=== PATIENT | female | born 1955 | race Caucasian/White ===

== ENCOUNTER 2017-10-27 13:59 | Emergency (ER) | payer BC ==
--- NOTE | 2017-10-27 14:42 | UC ---
Cardiac HPI - HPI Summary HPI Summary: 62 yo WF smoker recently quit one week ago now p/w left sided CP radiating to left arm and to the back x few hours. Quit smoking about 2-3 weeks ago - History of Current Complaint Chief Complaint: UCChestPain Stated Complaint: SHOULDER PAIN SOB DIZZY Time Seen by Provider: 10/27/17 14:09 Hx Obtained From: Patient Hx From Patient Unobtainable Due To: Other Hx Last Menstrual Period: age 49 Onset/Duration: Sudden Onset, Lasting Hours Initial Severity: Moderate Current Severity: Moderate Pain Intensity: 5 - Allergy/Home Medications Allergies/Adverse Reactions: Allergies Allergy/AdvReac Type Severity Reaction Status Date / Time No Known Allergies Allergy Verified 10/27/17 19:05 PMH/Surg Hx/FS Hx/Imm Hx - Additional Past Medical History Additional PMH: none - Surgical History Surgical History: Yes Surgery Procedure, Year, and Place: leg vein surgery - Social History Alcohol Use: Occasionally Substance Use Type: None Smoking Status (MU): Former Smoker Type: Cigarettes Amount Used/How Often: 1/2 pack daily When Did the Patient Quit Smoking/Using Tobacco: 40+ years Review of Systems Constitutional: Negative Skin: Negative Eyes: Negative ENT: Negative Respiratory: Negative Cardiovascular: Chest Pain Gastrointestinal: Negative Genitourinary: Negative Motor: Negative Neurovascular: Negative Musculoskeletal: Negative Neurological: Negative Psychological: Negative All Other Systems Reviewed And Are Negative: Yes Physical Exam Triage Information Reviewed: Yes Vital Signs: Initial Vital Signs Temp 36.6 C 10/27/17 14:08 Pulse 80 10/27/17 14:08 Resp 18 10/27/17 14:08 BP 116/74 10/27/17 14:08 Pulse Ox 98 10/27/17 14:08 Eye Exam: Normal ENT Exam: Normal Dental Exam: Normal Neck exam: Normal Neck: Positive: 1 Respiratory Exam: Normal Cardiovascular Exam: Normal Abdominal Exam: Normal Musculoskeletal Exam: Normal Neurological Exam: Normal Psychological Exam: Normal Skin Exam: Normal - Differential Diagnoses - Chest Pain Differential Diagnosis/HQI/PQRI: Acute GA, ACS, Angina, Lower Respiratory Infection - Clinical Impression Provider Diagnoses: left sided CP, r/o ACS Discharge - Discharge Plan Condition: Stable Disposition: HOME Patient Education Materials: Chest Pain (ED) Referrals: Aminata Rangel [Primary Care Provider] - Additional Instructions: GO to ER when you leave here for continued left sided chest pressure to make sure they do a more comprehensive workup for your chest pain
[2017-10-27 15:07] VITALS: BP 116/74
== END 2017-10-27 14:27 | disposition home or self-care (01) ==
LOC: UCEAST 13:59
DX: R07.89 Other chest pain (principal); Z87.891 Personal history of nicotine dependence
CPT/HCPCS: 93005; 99212; G0463

== ENCOUNTER 2017-10-27 14:51 | Emergency (ER) | payer BC ==
--- NOTE | 2017-10-27 17:45 | RAD ---
INDICATION: Chest tightness. COMPARISON: There are no prior studies available for comparison. TECHNIQUE: Dual-energy PA views of the chest were obtained. FINDINGS: The heart is within normal limits in size. The lungs are clear. No pleural effusion is seen. There is a retrocardiac density suggestive of a hiatal hernia. IMPRESSION: 1. NO EVIDENCE FOR ACUTE FINDING. 2. PROBABLE HIATAL HERNIA.
[2017-10-27 17:48] LABS: ABS Basophils 0.1 10^3/ul (0-0.2); ABS Eosinophils 0.1 10^3/ul (0-0.6); ABS Lymphocytes 2.6 10^3/ul (1.0-4.8); ABS Monocytes 0.5 10^3/ul (0-0.8); ABS Neutrophils 5.6 10^3/ul (1.5-7.7); ABS Nucleated RBC 0 10^3/ul; Hematocrit 45 % (35-47); Hemoglobin 15.4 g/dl (12.0-16.0); Lymphocyte % 29.2 % (25-47); Mean Corpuscular HGB Conc 34 g/dl (31-36); Mean Corpuscular Hemoglobin 32 pg (27-31); Mean Corpuscular Volume 92 fL (80-97); Mean Platelet Volume 9 um3 (7.4-10.4); Nucleated Red Blood Cells % 0.1; Platelet Count 241 10^3/ul (150-450); Red Blood Count 4.88 10^6/ul (4.0-5.4); Red Cell Distribution Width 13 % (10.5-15); White Blood Count 8.9 10^3/ul (3.5-10.8)
[2017-10-27 18:05] LABS: EGFR Non-African American 66.6 (>60)
[2017-10-27] MEDS ORDERED: Sucralfate TAB* 1 GM PO ONE (21:20)
[2017-10-27 21:43] VITALS: BP 135/80
--- NOTE | 2017-10-27 21:51 | ED ---
Ibeth Conklin Julia, scribed for Sarthak Davis MD on 10/27/17 at 1904 . HPI Chest Pain - HPI Summary HPI Summary: This patient is a 62 year old F presenting to [facility] with a chief complaint of dull chest tightness radiating to her left shoulder beginning this morning while drinking coffee at 09:00 this morning. Patient reports weakness and lightheadedness with chest pain. Patient denies nausea and SOB. The patient rates the pain 5/10 in severity. Symptoms unchanged by movement. Patient reports a previous left shoulder injury. - History of Current Complaint Chief Complaint: EDChestPainROMI Time Seen by Provider: 10/27/17 18:55 Hx Obtained From: Patient Hx Last Menstrual Period: age 49 Onset/Duration: Started Hours Ago Initial Severity: Moderate Current Severity: Mild Pain Intensity: 5 Pain Scale Used: 0-10 Numeric Chest Pain Location: Left Anterior Chest Pain Radiates: Yes Chest Pain Radiates To:: Shoulder - left Character: Tightness Aggravating Factor(s): Caffeine Associated Signs and Symptoms: Negative: Shortness of Breath, Nausea - Allergy/Home Medications Allergies/Adverse Reactions: Allergies Allergy/AdvReac Type Severity Reaction Status Date / Time No Known Allergies Allergy Verified 10/27/17 19:05 PMH/Surg Hx/FS Hx/Imm Hx Musculoskeletal History: Reports: Other Musculoskeletal History - L shoulder injury EENT History: Denies: Hx Deafness - Surgical History Surgery Procedure, Year, and Place: leg vein surgery Infectious Disease History: Yes Infectious Disease History: Reports: Hx Shingles Denies: Traveled Outside the [place] in Last 30 Days - Social History Alcohol Use: Occasionally Substance Use Type: Reports: None Smoking Status (MU): Former Smoker Type: Cigarettes Amount Used/How Often: 1/2 pack daily Review of Systems Positive: Chest Pain Negative: Shortness Of Breath Negative: Nausea Positive: Myalgia - L shoulder All Other Systems Reviewed And Are Negative: Yes Physical Exam - Summary Physical Exam Summary: Appearance: The patient is well-nourished in no acute distress and in no acute pain. Skin: The skin is warm and dry and skin color reflects adequate perfusion. HEENT: The head is normocephalic and atraumatic. The pupils are equal and reactive. The conjunctivae are clear and without drainage. Nares are patent and without drainage. Mouth reveals moist mucous membranes and the throat is without erythema and exudate. The external ears are intact. The ear canals are patent and without drainage. The tympanic membranes are intact. Neck: the neck is supple with full range of motion and non-tender. There are no carotid bruits. There is no neck vein distension. Respiratory: Chest is non-tender. Lungs are clear to auscultation and breath sounds are symmetrical and equal. Cardiovascular: Heart is regular rate and rhythm. There is no murmur or rub auscultated. There is no peripheral edema and pulses are symmetrical and equal. Abdomen: The abdomen is soft and non-tender. There are normal bowel sounds heard in all four quadrants and there is no organomegaly palpated. Musculoskeletal: There is no back tenderness noted. Extremities are non-tender with full range of motion. There is good capillary refill. There is no peripheral edema or calf tenderness elicited. Neurological: Patient is alert and oriented to person, place and time. The patient has symmetrical motor strength in all four extremities. Cranial nerves are grossly intact. Deep tendon reflexes are symmetrical and equal in all four extremities. Psychiatric: The patient has an appropriate affect and does not exhibit any anxiety or depression. Triage Information Reviewed: Yes Vital Signs On Initial Exam: Initial Vitals Temp Pulse Resp BP Pulse Ox 98.1 F 77 20 142/69 97 10/27/17 14:53 10/27/17 14:53 10/27/17 14:53 10/27/17 14:53 10/27/17 14:53 Vital Signs Reviewed: Yes Diagnostics - Vital Signs Vital Signs Temp Pulse Resp BP Pulse Ox 10/27/17 16:45 97.6 F 70 14 127/84 98 10/27/17 14:53 98.1 F 77 20 142/69 97 - Laboratory Lab Results: Lab Results 10/27/17 10/27/17 10/27/17 Range/Units 17:35 17:35 17:35 WBC 8.9 (3.5-10.8) 10^3/ul RBC 4.88 (4.0-5.4) 10^6/ul Hgb 15.4 (12.0-16.0) g/dl Hct 45 (35-47) % MCV 92 (80-97) fL MCH 32 H (27-31) pg MCHC 34 (31-36) g/dl RDW 13 (10.5-15) % Plt Count 241 (150-450) 10^3/ul MPV 9 (7.4-10.4) um3 Neut % (Auto) 63.7 (38-83) % Lymph % (Auto) 29.2 (25-47) % [place] % (Auto) 5.2 (0-7) % Eos % (Auto) 1.0 (0-6) % Baso % (Auto) 0.9 (0-2) % Absolute Neuts (auto) 5.6 (1.5-7.7) 10^3/ul Absolute Lymphs (auto) 2.6 (1.0-4.8) 10^3/ul Absolute Monos (auto) 0.5 (0-0.8) 10^3/ul Absolute Eos (auto) 0.1 (0-0.6) 10^3/ul Absolute Basos (auto) 0.1 (0-0.2) 10^3/ul Absolute Nucleated RBC 0 10^3/ul Nucleated RBC % 0.1 Sodium 138 (133-145) mmol/L Potassium 3.9 (3.5-5.0) mmol/L Chloride 104 (101-111) mmol/L Carbon Dioxide 28 (22-32) mmol/L Anion Gap 6 (2-11) mmol/L BUN 11 (6-24) mg/dL Creatinine 0.86 (0.51-0.95) mg/dL Est GFR ( Amer) 85.7 (>60) Est GFR (Non-Af Amer) 66.6 (>60) BUN/Creatinine Ratio 12.8 (8-20) Glucose 93 (70-100) mg/dL Lactic Acid 1.0 (0.5-2.0) mmol/L Calcium 9.9 (8.6-10.3) mg/dL Total Bilirubin 0.40 (0.2-1.0) mg/dL AST 18 (13-39) U/L ALT 15 (7-52) U/L Alkaline Phosphatase 92 (34-104) U/L Troponin I 0.02 (<0.04) ng/mL Total Protein 7.5 (6.4-8.9) g/dL Albumin 4.6 (3.2-5.2) g/dL Globulin 2.9 (2-4) g/dL Albumin/Globulin Ratio 1.6 (1-3) Result Diagrams: 10/27/17 17:35 10/27/17 17:35 Lab Statement: Any lab studies that have been ordered have been reviewed, and results considered in the medical decision making process. - Radiology CXR Radiology Interpretation Completed By: Radiologist - 1. NO EVIDENCE FOR ACUTE FINDING. 2. PROBABLE HIATAL HERNIA. ED Physician has reviewed this report. - EKG 14:53 Cardiac Rate: NL - at 69 BPM EKG Rhythm: Sinus Rhythm Chest Pain Course/Dx - Course Course Of Treatment: Ms. Meyer presented with several hours of an atypical chest pain. She was negative for a d-dimer and two troponins and I recommended close F/U. - Diagnoses Provider Diagnoses: Chest pain Discharge - Discharge Plan Condition: Stable Disposition: HOME Patient Education Materials: Chest Pain (ED) Referrals: Aminata Rangel [Primary Care Provider] - 3 Days (Follow up with your primary care physician.) The documentation as recorded by the Ibeth ling Julia accurately reflects the service I personally performed and the decisions made by , Sarthak Davis MD.
== END 2017-10-27 21:41 | disposition home or self-care (01) ==
LOC: ED 14:51
DX: R07.89 Other chest pain (principal)
CPT/HCPCS: 36415; 71045; 80053; 83605; 84484; 85025; 93005; 99282; A9270-GY

== ENCOUNTER 2017-11-26 14:02 | Emergency (ER) | payer BC ==
--- NOTE | 2017-11-26 15:49 | RAD ---
INDICATION: Dizziness and bleeding from left ear after "fell onto bookshelf" COMPARISON: None. TECHNIQUE: Contiguous axial sections of the brain were obtained from the skull base to the vertex without contrast. FINDINGS: The ventricles, cisterns and sulci mild symmetrical involutional changes.. The esquivel-white matter differentiation is adequately maintained and there is no sulcal effacement. No significant focal abnormality or mass effect is present. External to the left frontal lobe (axial image 17 of 32) there is hyperattenuating linear density but this does not appear dense enough to be considered extra-axial hemorrhage. Volume averaging or perhaps an extra-axial blood vessel is favored. No significant focal osseous abnormality is present. The visualized portion of the paranasal sinuses appear clear. The mastoid air cells are well aerated bilaterally. IMPRESSION: No CT evidence of acute injury including calvarial fracture or definite acute intracranial hemorrhage.
[2017-11-26 16:46] LABS: Urine Appearance Cloudy; Urine Blood Negative (Negative); Urine Color Yellow; Urine Ketones Negative (Negative); Urine Protein Negative (Negative); Urine Urobilinogen Negative (Negative)
[2017-11-26] MEDS: NS 0.9% 1000 ML* 1,000 ML IV ONE ×2 (16:51→18:39)
[2017-11-26 17:00] LABS: ABS Basophils 0 10^3/ul (0-0.2); ABS Eosinophils 0 10^3/ul (0-0.6); ABS Lymphocytes 1.4 10^3/ul (1.0-4.8); ABS Monocytes 0.7 10^3/ul (0-0.8); ABS Neutrophils 10.3 10^3/ul (1.5-7.7); ABS Nucleated RBC 0 10^3/ul; Eosinophil % 0.2 % (0-6); Hematocrit 41 % (35-47); Hemoglobin 13.9 g/dl (12.0-16.0); Lymphocyte % 11.1 % (25-47); Mean Corpuscular HGB Conc 34 g/dl (31-36); Mean Corpuscular Hemoglobin 31 pg (27-31); Mean Corpuscular Volume 91 fL (80-97); Mean Platelet Volume 8.8 um3 (7.4-10.4); Nucleated Red Blood Cells % 0; Platelet Count 222 10^3/ul (150-450); Red Blood Count 4.47 10^6/ul (4.0-5.4); Red Cell Distribution Width 13 % (10.5-15); White Blood Count 12.4 10^3/ul (3.5-10.8)
[2017-11-26 17:05] LABS: INR 0.94 (0.77-1.02)
[2017-11-26 17:16] LABS: EGFR Non-African American 64.9 (>60)
[2017-11-26] MEDS ORDERED: cefTRIAXone(*) 2 GM in NS 0.9% 100 ML* 100 ML IVPB ONE (17:58)
[2017-11-26] MEDS ORDERED: NS 0.9% 250 ML* 250 ML IV SCH (18:00)
--- NOTE | 2017-11-26 18:43 | ED ---
Sydney Conklin Emily, scribed for Veronika Coffman MD on 11/26/17 at 1547 . Head Injury - HPI Summary HPI Summary: This patient is a 62 year old F BIBA to [facility] accompanied by family status post fall that occurred [employer]. Pt reports hitting her head upon falling. Pt denies LOC. The patient rates the pain 10/10 in severity. Symptoms aggravated by nothing. Symptoms alleviated by nothing. Patient reports bleeding from L ear, lightheadedness, and L ear pressure. Patient denies numbness, changes in sensation, and one sided weakness. - History Of Current Complaint Chief Complaint: EDHeadInjury Stated Complaint: FALL/DIZZINESS Hx Obtained From: Patient Hx Last Menstrual Period: age 49 Mechanism Of Injury: Fall From A Standing Position Onset/Duration: Started Hours Ago Onset of Pain: Immediate Severity Currently: Severe Severity Initially: Moderate Pain Intensity: 10 Pain Scale Used: 0-10 Numeric Location of Head Injury: Occipital Aggravating Factor(s): Other: - Nothing Alleviating Factor(s): Other: - Nothing Associated Signs And Symptoms: Other: - Patient reports bleeding from L ear, lightheadedness, and L ear pressure. Patient denies numbness, changes in sensation, and one sided weakness - Allergies/Home Medications Allergies/Adverse Reactions: Allergies Allergy/AdvReac Type Severity Reaction Status Date / Time No Known Allergies Allergy Verified 11/26/17 14:05 Home Medications: Home Medications Cholecalciferol TAB* [Vitamin D TAB*] 4,000 units PO DAILY 11/26/17 [History Confirmed 11/26/17] PMH/Surg Hx/FS Hx/Imm Hx Previously Healthy: No Musculoskeletal History: Reports: Other Musculoskeletal History - L shoulder injury Sensory History: Denies: Hx Deafness - Surgical History Surgery Procedure, Year, and Place: leg vein surgery - Immunization History Date of Tetanus Vaccine: unk Date of Influenza Vaccine: none Infectious Disease History: No Infectious Disease History: Reports: Hx Shingles Denies: Traveled Outside the [place] in Last 30 Days - Family History Known Family History: Positive: Unknown - Social History Occupation: Retired Lives: With Family Alcohol Use: Occasionally Substance Use Type: Reports: None Smoking Status (MU): Former Smoker Type: Cigarettes Amount Used/How Often: 1/2 pack daily Review of Systems Positive: Other - Positive bleeding from L ear and L ear pressure Positive: Other - Positive back pain Neurological: Other - Positive lightheadedness. Negative numbness, changes in sensation, and one sided weakness Negative: Syncope All Other Systems Reviewed And Are Negative: Yes Physical Exam - Summary Physical Exam Summary: Appearance: Well-appearing, Well-nourished Skin: Warm Eyes: Normal ENT: Blood cerumen mix in left ear canal. Head: No crepitus palpated around the left pinna. Area of tenderness and mild swelling 2 cm behind the L pinna, consistend with skull contusion with no skin breakdown. Neck: Supple, nontender Respiratory: Clear to auscultation Cardiovascular: Regular rate, regular rhythm. Normal S1, S2. Abdomen: Soft, nontender Musculoskeletal: Normal, Strength/ROM Intact Neurological: Normal, A&Ox3 Psychiatric: Normal General: No acute distress Triage Information Reviewed: Yes Vital Signs On Initial Exam: Initial Vitals Temp Pulse Resp BP Pulse Ox 98.5 F 68 12 119/70 96 11/26/17 14:03 11/26/17 14:03 11/26/17 14:03 11/26/17 14:03 11/26/17 14:03 Vital Signs Reviewed: Yes Diagnostics - Vital Signs Vital Signs Temp Pulse Resp BP Pulse Ox 11/26/17 14:03 98.5 F 68 12 119/70 96 - Laboratory Lab Results: Lab Results 11/26/17 11/26/17 11/26/17 Range/Units 16:35 16:51 16:51 WBC 12.4 H (3.5-10.8) 10^3/ul RBC 4.47 (4.0-5.4) 10^6/ul Hgb 13.9 (12.0-16.0) g/dl Hct 41 (35-47) % MCV 91 (80-97) fL MCH 31 (27-31) pg MCHC 34 (31-36) g/dl RDW 13 (10.5-15) % Plt Count 222 (150-450) 10^3/ul MPV 8.8 (7.4-10.4) um3 Neut % (Auto) 83.0 (38-83) % Lymph % (Auto) 11.1 L (25-47) % [place] % (Auto) 5.4 (0-7) % Eos % (Auto) 0.2 (0-6) % Baso % (Auto) 0.3 (0-2) % Absolute Neuts (auto) 10.3 H (1.5-7.7) 10^3/ul Absolute Lymphs (auto) 1.4 (1.0-4.8) 10^3/ul Absolute Monos (auto) 0.7 (0-0.8) 10^3/ul Absolute Eos (auto) 0 (0-0.6) 10^3/ul Absolute Basos (auto) 0 (0-0.2) 10^3/ul Absolute Nucleated RBC 0 10^3/ul Nucleated RBC % 0 INR (Anticoag Therapy) (0.77-1.02) Sodium 138 L (139-145) mmol/L Potassium 4.0 (3.5-5.0) mmol/L Chloride 105 (101-111) mmol/L Carbon Dioxide 26 (22-32) mmol/L Anion Gap 7 (2-11) mmol/L BUN 15 (6-24) mg/dL Creatinine 0.88 (0.51-0.95) mg/dL Est GFR ( Amer) 83.5 (>60) Est GFR (Non-Af Amer) 64.9 (>60) BUN/Creatinine Ratio 17.0 (8-20) Glucose 110 H (70-100) mg/dL Calcium 9.3 (8.6-10.3) mg/dL Total Bilirubin 0.40 (0.2-1.0) mg/dL AST 19 (13-39) U/L ALT 18 (7-52) U/L Alkaline Phosphatase 82 (34-104) U/L Troponin I 0.00 (<0.04) ng/mL Total Protein 6.6 (6.4-8.9) g/dL Albumin 4.0 (3.2-5.2) g/dL Globulin 2.6 (2-4) g/dL Albumin/Globulin Ratio 1.5 (1-3) Urine Color Yellow Urine Appearance Cloudy Urine pH 6.0 (5-9) Ur Specific [place] 1.020 (1.010-1.030) Urine Protein Negative (Negative) Urine Ketones Negative (Negative) Urine Blood Negative (Negative) Urine Nitrate Negative (Negative) Urine Bilirubin Negative (Negative) Urine Urobilinogen Negative (Negative) Ur Leukocyte Esterase 2+ A (Negative) Urine WBC (Auto) Trace(0-5/hpf) (Absent) Urine RBC (Auto) Absent (Absent) Ur Squamous Epith Cells Present A (Absent) Urine Bacteria Absent (Absent) Urine Glucose Negative (Negative) 11/26/17 Range/Units 16:51 WBC (3.5-10.8) 10^3/ul RBC (4.0-5.4) 10^6/ul Hgb (12.0-16.0) g/dl Hct (35-47) % MCV (80-97) fL MCH (27-31) pg MCHC (31-36) g/dl RDW (10.5-15) % Plt Count (150-450) 10^3/ul MPV (7.4-10.4) um3 Neut % (Auto) (38-83) % Lymph % (Auto) (25-47) % [place] % (Auto) (0-7) % Eos % (Auto) (0-6) % Baso % (Auto) (0-2) % Absolute Neuts (auto) (1.5-7.7) 10^3/ul Absolute Lymphs (auto) (1.0-4.8) 10^3/ul Absolute Monos (auto) (0-0.8) 10^3/ul Absolute Eos (auto) (0-0.6) 10^3/ul Absolute Basos (auto) (0-0.2) 10^3/ul Absolute Nucleated RBC 10^3/ul Nucleated RBC % INR (Anticoag Therapy) 0.94 (0.77-1.02) Sodium (139-145) mmol/L Potassium (3.5-5.0) mmol/L Chloride (101-111) mmol/L Carbon Dioxide (22-32) mmol/L Anion Gap (2-11) mmol/L BUN (6-24) mg/dL Creatinine (0.51-0.95) mg/dL Est GFR ( Amer) (>60) Est GFR (Non-Af Amer) (>60) BUN/Creatinine Ratio (8-20) Glucose (70-100) mg/dL Calcium (8.6-10.3) mg/dL Total Bilirubin (0.2-1.0) mg/dL AST (13-39) U/L ALT (7-52) U/L Alkaline Phosphatase (34-104) U/L Troponin I (<0.04) ng/mL Total Protein (6.4-8.9) g/dL Albumin (3.2-5.2) g/dL Globulin (2-4) g/dL Albumin/Globulin Ratio (1-3) Urine Color Urine Appearance Urine pH (5-9) Ur Specific [place] (1.010-1.030) Urine Protein (Negative) Urine Ketones (Negative) Urine Blood (Negative) Urine Nitrate (Negative) Urine Bilirubin (Negative) Urine Urobilinogen (Negative) Ur Leukocyte Esterase (Negative) Urine WBC (Auto) (Absent) Urine RBC (Auto) (Absent) Ur Squamous Epith Cells (Absent) Urine Bacteria (Absent) Urine Glucose (Negative) Result Diagrams: 11/26/17 16:51 11/26/17 16:51 Lab Statement: Any lab studies that have been ordered have been reviewed, and results considered in the medical decision making process. - CT Head CT CT Interpretation Completed By: Radiologist - Brain CT reveals, per radiologist , no CT evidence of acute injury including calvarial fracture or definite acute intracranial hemorrhage. ED physician has reviewed this radiology report. - EKG 1552 Cardiac Rate: NL EKG Rhythm: Sinus Rhythm - 66 BPM EKG Interpretation: No STT wave changes. Low voltage. Q wave changes in III only Re-Evaluation - Re-Evaluation First Eval Re-Evaluation Time: 18:00 Change: Unchanged Comment: Discussed plan of care with pt Head Injury Course/Dx Assessment/Plan: CT head neg, left bloody ear likely related to barotrauma from acute fall. UA +for LE, WBC and is cloudy- pt has B/L CVA tenderness and upon further questioning, pt states she has not been feeling well, LBP getting worse , until feeling lightheaded and falling. Called hospitalist Dr Simeon to admit pt for possible acute pyelo and for IV abx and for acute syncopal episode - Diagnoses Provider Diagnoses: Syncope, Pyelonephritis - Physician Notifications Discussed Care Of Patient With: Tr Simeon Time Discussed With Above Provider: 18:10 Instructed by Provider To: Other - Consult with Dr. Simeon (hospitalist) at 1809. He agrees to admit pt for further evaluation. Discharge - Sign-Out/Discharge Documenting (check all that apply): Discharge - Discharge Plan Condition: Stable Disposition: ADMITTED TO [facility] Referrals: Aminata Rangel [Primary Care Provider] - - Billing Disposition and Condition Condition: STABLE Disposition: [facility] The documentation as recorded by the Sydney ling Emily accurately reflects the service I personally performed and the decisions made by Augustus lui Euni, MD.
[2017-11-26] MEDS ORDERED: Ibuprofen TAB* 400 MG PO ONE (19:09)
[2017-11-26 20:53] VITALS: BP 97/65
--- NOTE | 2017-11-26 21:51 | CONS ---
CONSULTATION REPORT: DATE OF CONSULT: 11/26/17 - EMERGENCY DEPT CONSULTING PHYSICIAN: Tr Simeon MD CHIEF COMPLAINT: Fall. HISTORY OF PRESENT ILLNESS: Chanell Meyer is a 62-year-old female, past medical history of low vitamin D levels and high cholesterol on recent outpatient check , [place] the [place] she [place] suddenly, lost balance and fell hitting her head against the side of a bookcase. Her ydyjwvah-xi-txx and son were nearby and called EMS, was transported to [facility] Emergency Room. She was noted to have some bleeding from her left ear. She had a CT of the brain which demonstrated no CT evidence of acute injury including calvarial fracture or definitive acute intracranial hemorrhage. She had a urinalysis significant for 2+ leukocyte esterase and white count elevated at 12.4. She was afebrile, heart rate 70s to 80s, blood pressure 110s to 130s systolically, she was satting well on room air. She was referred to hospitalist service for admission for possible pyelonephritis given report of CVA tenderness. The patient denies any history of urinary frequency, dysuria, chest pain, chest pressure, chest tightness, abdominal pain, nausea, vomiting, diarrhea or constipation. She has a history of arthritis of the left hip and scoliosis. She lives with her son and [id number]-nsw in a trailer, recently moved. She is also a former smoker, one-half pack year for most of her adult life. She is short of breath with exercise, has no orthopnea or paroxysmal nocturnal dyspnea. EKG in the emergency room demonstrated normal sinus rhythm, normal intervals, normal axis, no ST elevations or depressions. On exam, she had no CVA tenderness and is being referred home for outpatient management of possible UTI given her stable vital signs, nontoxic appearance. In the emergency room, she got 2 g of ceftriaxone and 1000 cc of normal saline. She is about to get ibuprofen 400 mg for her pain for tenderness at the back of the head near her injury. She was also checked for orthostatics in the emergency room and these were negative. OUTPATIENT MEDICATIONS: Include cholecalciferol 4000 units p.o. daily. ALLERGIES: No known drug allergies. FAMILY HISTORY: Father of esophageal cancer, mother of ovarian cancer. SOCIAL HISTORY: The patient is a former half pack a day smoker for 50 years, nondrinker and no other drug use. Lives with son, Vance Staton and daughter-in - law who are at the bedside. Vance is her healthcare proxy. She is a full code. REVIEW OF SYSTEMS: Complete 14-point review of systems negative except as per HPI. PHYSICAL EXAM: General Appearance: No acute distress, sitting in the hospital bed. Vital Signs: Temperature 98.5, pulse 81, satting 97% on room air, blood pressure 125/77. HEENT: Normocephalic, atraumatic. Pupils are equal, round, and reactive to light. Extraocular motions are intact. No cervical lymphadenopathy. Moist mucous membranes. Some tenderness to the left posterior scalp. No induration, ecchymosis, erythema and left ear with trace blood on gauze packed. Pulmonary: Clear to auscultation bilaterally with no wheezing, rales, or rhonchi. Cardiovascular: Regular rate and rhythm. No murmurs, rubs, or gallops. Abdomen: Soft, nontender, nondistended. Back: Scoliosis. No CVA tenderness or midline paraspinal tenderness to palpation. Extremities: Warm, well perfused. No peripheral edema. Neuro: Cranial nerves II through XII intact. Moving all extremities. [employer] strength intact. The patient was ambulated in the emergency room, was steady on her feet with no assistance. Denied dizziness. DIAGNOSTIC STUDIES/LAB DATA: White count 12.4, hemoglobin 13.9, hematocrit 41, platelets 222, neutrophils 83%. INR 0.94. Sodium 138, potassium 4.0, chloride 105, carbon dioxide 26, creatinine 0.88, BUN 15, glucose 110. Total bili 0.4, AST 19, ALT 18, alk phos 82. Troponin 0.00. Albumin 4.0. Urinalysis significant for 2+ leukocyte esterase, negative nitrites, negative blood, trace wbc's, trace rbc's, absent urine bacteria. IMAGING: Noncontrast CT head shows no evidence of acute injury including calvarial fracture or definite acute intracranial hemorrhage. No significant focal osseous abnormality. Paranasal sinuses clear. Mastoid air cells well- aerated bilaterally. ASSESSMENT AND PLAN: Chanell Meyer is a 62-year-old female with low vitamin D levels, presented with mechanical fall with bruising to the back of her head and some slight bleeding to the left ear that has stabilized and her CT head was negative. She has 2+ leukocyte esterase on her urinalysis. Denies any dysuria, frequency, fevers, chills, or systemic symptoms. Her hemodynamics in the ER are stable. She is afebrile with a mild leukocytosis of 12.4. Medicine service was consulted for admission for pyelonephritis, but there was no CVA tenderness on exam and otherwise nontoxic appearing. The patient was discharged from the ED with prescription for Bactrim for 2 more days for a total of 3-day course, she got 2 g of ceftriaxone in the emergency room. She should follow with Dr. Moncada of [place], [place] within 3 to 5 days of discharge. She was also provided ibuprofen in the emergency room and prescription to take as an outpatient for the mild headache associated with the fall. She should continue her vitamin D supplementation. She was instructed to return to the emergency room with any signs of high fevers, lightheadedness, falls, abdominal pain. Thank you for this interesting consult. [id number]/[facility] #: [id number] SHANNA
== END 2017-11-26 21:06 | disposition short-term general hospital (02) ==
LOC: ED 14:02
DX: R55 Syncope and collapse (principal); N12 Tubulo-interstitial nephritis, not specified as acute or chronic; S00.03XA Contusion of scalp, initial encounter; S09.91XA Unspecified injury of ear, initial encounter; W19.XXXA Unspecified fall, initial encounter; Y93.9 Activity, unspecified; Y92.9 Unspecified place or not applicable; H93.8X2 Other specified disorders of left ear; R42 Dizziness and giddiness; Z87.891 Personal history of nicotine dependence
CPT/HCPCS: 36415; 70450; 80053; 81003; 81015; 84484; 85025; 85610; 87086; 93005; 96365; 99283; A9270-GY; J0696